=== PATIENT | male | born 1975 | race Caucasian/White ===

== ENCOUNTER 2017-09-13 23:24 | Inpatient (IN) ==
[2017-09-14] MEDS ORDERED: ONDANSETRON 4 MG/2 ML VIAL IV PRN (02:40)
[2017-09-14] MEDS ORDERED: SODIUM CHLORIDE 0.9% 1,000 ML IV SCH (03:00)
[2017-09-14 03:23] LABS: Basophils % 0.6 % (0.0-0.8); Eosinophils % 0.3 % (0.00-10.9); Hematocrit 44.1 VOL% (42.0-52.0); Hemoglobin 14.6 GM/DL (14.0-18.0); Immature Granulocytes % 1.5 %; Immature Granulocytes Absolute 0.05 #; Lymphocytes # 0.3 10*3/uL (1.4-4.0); Lymphocytes % 9.1 % (21.2-54.2); Mean Corpuscular HGB Conc 33.1 GM/DL (32-36); Mean Corpuscular Hemoglobin 29 PG (27-34); Mean Platelet Volume 12.5 FL (9.6-12.0); Monocytes # 0.4 10*3/uL (0.11-0.8); Monocytes % 10.9 % (1.7-12.7); NRBC # 0.02 10*3/uL; Neutrophils # 2.6 10*3/uL (1.4-7.4); Neutrophils % 77.6 % (38.7-73.9); Platelet Count 235 T/CUMM (130-400); Red Blood Count 5.01 MC/CUMM (3.8-5.5); Red Cell Distribution Width 14.2 % (9.3-17.3); White Blood Count 3.3 T/CUMM (4-12)
[2017-09-14 03:43] LABS: ABG Base Excess -10.3 MMOL/L (-2.5-2.5); ABG HCO3 16.4 MMOL/L (20-26); ABG Oxygen Saturation 94.9 % (95-100); ABG PH 7.248 (7.35-7.45); ABG TCO2 14.5 MMOL/L (23-27)
[2017-09-14] MEDS: CLINDAMYCIN INJ 900 MG in PREMIX 1 EACH IV SCH ×2 (03:45→11:20)
[2017-09-14 03:47] LABS: Albumin 2.3 G/DL (3.4-5.0); Bilirubin,Total 1.5 MG/DL (0.2-1.0); Calcium 7.5 MG/DL (8.5-10.1); Osmolality,Calculated 279.9 MOS/KG (273-304); Potassium 4.2 MMOL/L (3.5-5.1); Total Protein 5.8 G/DL (6.4-8.3)
[2017-09-14] MEDS ORDERED: MORPHINE 4 MG/1 ML VIAL IV ONE (04:10)
[2017-09-14 04:11] LABS: CKMB % 0.4 %
[2017-09-14 04:12] LABS: Troponin I Only 0.166 NG/ML (0.00-0.045)
[2017-09-14] MEDS ORDERED: SODIUM BICARB INJ 100 MEQ in SODIUM CHLORIDE 0.45% 1,000 ML IV SCH (04:30)
[2017-09-14 04:42] LABS: Band Neutrophils 22 % (0-10); Lymphocytes 11 % (20-55); Platelet Estimate Adequate; Segmented Neutrophils 51 % (50-85); Total Cells Counted 100
[2017-09-14 04:43] LABS: Burr Cells Slight; Giant Platelets Few; Ovalocytes Slight
[2017-09-14] MEDS ORDERED: MAGNESIUM SULF RIDER 2 GM in PREMIX 1 EACH IV PRN (05:09)
[2017-09-14] MEDS ORDERED: SODIUM CHLORIDE 0.9% 500 ML IV ONE ×2 (05:09→05:46)
[2017-09-14] MEDS ORDERED: MAGNESIUM SULF RIDER 4 GM in PREMIX 1 EACH IV PRN (05:09)
[2017-09-14] MEDS ORDERED: NOREPINEPHRINE 4 MG/4 ML VIAL IV ONE (05:52)
[2017-09-14] MEDS: PIPERACILLIN/TAZOBACTAM 3,375 MG in SODIUM CHLORIDE 0.9% 100 ML IV SCH ×2 (06:24→16:52)
[2017-09-14] MEDS: SODIUM CHLORIDE 0.9% 1,000 ML IV SCH ×3 (08:15→12:34)
[2017-09-14] MEDS: NOREPINEPHRINE 8 MG in SODIUM CHLORIDE 0.9% 242 ML IV PRN ×2 (08:26→12:21)
[2017-09-14] MEDS ORDERED: HEPARIN/NACL 0.9% 2 UNITS/ML 500 ML IV ONE (08:50)
[2017-09-14] MEDS ORDERED: MIDAZOLAM 10 MG/2 ML VIAL ONE (08:58)
[2017-09-14] MEDS ORDERED: PANTOPRAZOLE 40 MG TABLET PO SCH (09:00)
[2017-09-14] MEDS ORDERED: ENOXAPARIN 30 MG/0.3 ML SYRINGE SUBCUT SCH (09:00)
[2017-09-14] MEDS ORDERED: PHENYLEPHRINE 1 MG/10 ML SYRINGE IV ONE ×2 (09:05→12:39)
[2017-09-14] MEDS ORDERED: SUCCINYLCHOLINE 200 MG/10 ML VIAL ONE (09:05)
[2017-09-14] MEDS ORDERED: PROPOFOL 200 MG/20 ML VIAL IV ONE (09:05)
[2017-09-14 09:21] LABS: ABG HCO3 12.2 MMOL/L (20-26); ABG Oxygen Saturation 98.3 % (95-100); ABG PCO2 52.1 MM HG (35-48); ABG TCO2 13.5 MMOL/L (23-27)
[2017-09-14 09:23] LABS: ABG PH 7.058 (7.35-7.45)
[2017-09-14] MEDS ORDERED: SODIUM BICARBONATE 50 MEQ/50 ML SYRINGE IV STA (09:26)
[2017-09-14 10:08] LABS: ABG Base Excess -13.8 MMOL/L (-2.5-2.5); ABG HCO3 14.2 MMOL/L (20-26); ABG Oxygen Saturation 98.3 % (95-100); ABG PCO2 46.4 MM HG (35-48); ABG TCO2 14.2 MMOL/L (23-27)
[2017-09-14] MEDS: PHENYLEPHRINE DRIP 40 MG/250 ML PREMIX IV PRN ×2 (10:10→12:21)
[2017-09-14 10:11] LABS: ABG PH 7.142 (7.35-7.45)
[2017-09-14] MEDS ORDERED: SODIUM BICARBONATE 50 MEQ/50 ML SYRINGE IV ONE ×3 (10:22→13:07)
[2017-09-14] MEDS ORDERED: PROPOFOL 1,000 MG/100 ML BOTTLE IV ONE (10:24)
[2017-09-14] MEDS ORDERED: PHENYLEPHRINE DRIP 40 MG/250 ML PREMIX IV ONE (10:26)
[2017-09-14 11:04] LABS: Albumin 1.9 G/DL (3.4-5.0); Bilirubin,Total 1.1 MG/DL (0.2-1.0); Calcium 7.5 MG/DL (8.5-10.1); Osmolality,Calculated 282.8 MOS/KG (273-304); Potassium 4.5 MMOL/L (3.5-5.1); Total Protein 5.3 G/DL (6.4-8.3)
[2017-09-14 11:21] LABS: ABG Base Excess -10.5 MMOL/L (-2.5-2.5); ABG Oxygen Saturation 83.7 % (95-100); ABG PCO2 38.4 MM HG (35-48); ABG PH 7.242 (7.35-7.45); ABG PO2 55.1 MM HG (80-95); ABG TCO2 14.6 MMOL/L (23-27); Glucose Heart Surgery 87 MG/DL (74-106); Hematocrit Heart Surgery 45.1 PERCENT (42-52); Hemoglobin Heart Surgery 14.7 G/DL (14.0-18.0); Potassium Heart/CVR 4.6 MMOL/L (3.5-5.1)
[2017-09-14 12:05] LABS: ABG Base Excess -8.6 MMOL/L (-2.5-2.5); ABG HCO3 15.6 MMOL/L (20-26); ABG Oxygen Saturation 99.2 % (95-100); ABG PCO2 29.3 MM HG (35-48); ABG PH 7.345 (7.35-7.45); ABG PO2 221.2 MM HG (80-95); ABG TCO2 16.5 MMOL/L (23-27)
[2017-09-14 12:22] LABS: Troponin I Only 0.756 NG/ML (0.00-0.045)
[2017-09-14 12:30] LABS: Lactic Acid 10.4 MMOL/L (0.4-2.0)
[2017-09-14] MEDS ORDERED: ROCURONIUM 100 MG/10 ML VIAL IV ONE (12:37)
[2017-09-14] MEDS ORDERED: MIDAZOLAM 2 MG/2 ML VIAL ONE (12:37)
[2017-09-14] MEDS ORDERED: SEVOFLURANE 1 UNIT/15 MINUTE INH ONE (12:37)
[2017-09-14] MEDS ORDERED: ETOMIDATE 40 MG/20 ML VIAL IV ONE (12:37)
[2017-09-14] MEDS ORDERED: PHENYLEPHRINE 10 MG/1 ML VIAL IV ONE (12:39)
[2017-09-14 12:48] LABS: ABG Base Excess -17.7 MMOL/L (-2.5-2.5); ABG HCO3 11.7 MMOL/L (20-26); ABG Oxygen Saturation 98.8 % (95-100); ABG PCO2 29.1 MM HG (35-48); ABG TCO2 9.3 MMOL/L (23-27)
[2017-09-14] MEDS ORDERED: ALBUMIN 25% 25 GM in PREMIX 1 EACH IV STA (13:07)
[2017-09-14 13:11] LABS: Hematocrit 45.7 VOL% (42.0-52.0)
[2017-09-14 13:13] LABS: CKMB % 0.3 %
[2017-09-14] MEDS ORDERED: SODIUM BICARB INJ 150 MEQ in DEXTROSE 5% 850 ML IV SCH (13:30)
[2017-09-14] MEDS ORDERED: EPINEPHrine 1 MG/ML VIAL ONE (13:54)
[2017-09-14] MEDS ORDERED: DIVALPROEX 500 MG TABLET PO SCH (15:00)
[2017-09-14] MEDS ORDERED: NOREPINEPHRINE 16 MG in SODIUM CHLORIDE 0.9% 234 ML IV PRN (15:00)
[2017-09-14] MEDS ORDERED: PHENYLEPHRINE INJ 160 MG in SODIUM CHLORIDE 0.9% 234 ML IV PRN (15:00)
[2017-09-14] MEDS ORDERED: DEXTROSE 50% 25 GM/50 ML VIAL IV PRN (15:05)
[2017-09-14] MEDS ORDERED: GLUCAGON 1 MG VIAL IM PRN (15:05)
[2017-09-14] MEDS ORDERED: DEXTROSE 10% 1,000 ML IV SCH (15:30)
[2017-09-14 15:57] LABS: Hematocrit 36.4 VOL% (42.0-52.0); Hemoglobin 11.3 GM/DL (14.0-18.0)
[2017-09-14] MEDS ORDERED: SODIUM CHLORIDE 0.9% 2,000 ML IV ONE (16:44)
[2017-09-14 17:19] LABS: Basophils # 0.1 10*3/uL (0.0-0.2); Basophils % 1.3 % (0.0-0.8); Eosinophils % 0.3 % (0.00-10.9); Hematocrit 36.4 VOL% (42.0-52.0); Hemoglobin 11.6 GM/DL (14.0-18.0); Immature Granulocytes % 7.1 %; Immature Granulocytes Absolute 0.49 #; Lymphocytes # 0.8 10*3/uL (1.4-4.0); Lymphocytes % 11.5 % (21.2-54.2); Mean Corpuscular HGB Conc 31.9 GM/DL (32-36); Mean Corpuscular Hemoglobin 30 PG (27-34); Mean Corpuscular Volume 94.8 FL (87-102); Mean Platelet Volume 12.9 FL (9.6-12.0); Monocytes # 0.9 10*3/uL (0.11-0.8); Monocytes % 13.6 % (1.7-12.7); NRBC # 0.22 10*3/uL; Neutrophils # 4.6 10*3/uL (1.4-7.4); Neutrophils % 66.2 % (38.7-73.9); Platelet Count 131 T/CUMM (130-400); Red Blood Count 3.84 MC/CUMM (3.8-5.5); Red Cell Distribution Width 15.1 % (9.3-17.3); White Blood Count 6.9 T/CUMM (4-12)
[2017-09-14 17:20] LABS: ABG HCO3 7.3 MMOL/L (20-26); ABG Oxygen Saturation 98.5 % (95-100); ABG PCO2 27.4 MM HG (35-48); ABG TCO2 6.2 MMOL/L (23-27)
[2017-09-14 17:21] LABS: ABG PH 6.969 (7.35-7.45)
[2017-09-14 17:34] LABS: Apearance,Urine CLOUDY (Clear); Bacteria,Urine Occasional /HPF (Few); Bilirubin,Urine Negative (Negative); Blood, Urine Negative (Negative); Glucose,Urine (UA) Negative (Negative); Ketones,Urine Negative (Negative); Mucus,Urine Occasional /LPF (Occasional); Nitrite,Urine Negative (Negative); Protein,Urine 30 MG/DL; RBC,Urine 2 /HPF (0-4); Squamous Epithelial Cell,Urine Occasional /HPF (0-10); Urine Color Yellow (Yellow); Urine Specific Gravity 1.016 (1.001-1.035); Urine Urobilinogen < 2.0 EU/DL (0.2-1.0); WBC,Urine 3 /HPF (0-6)
[2017-09-14 17:45] LABS: INR 1.4; PT Patient Result 14.3 SECS
[2017-09-14 17:58] LABS: Lactic Acid 18.2 MMOL/L (0.4-2.0)
[2017-09-14 17:59] LABS: Partial Thromboplastin Time 78.4 SECS (0-40)
[2017-09-14] MEDS ORDERED: PENICILLIN G POTASSIUM INJ 4,000,000 UNIT in SODIUM CHLORIDE 0.9% 100 ML IV SCH (18:00)
[2017-09-14 18:47] VITALS: BP 59/35
[2017-09-14 18:55] LABS: Alanine Aminotransferase 432 U/L (16-61); Albumin 1.4 G/DL (3.4-5.0); Alkaline Phosphatase 142 U/L (45-117); Aspartate Amino Transferase 1160 U/L (0-37); Blood Urea Nitrogen 81 MG/DL (7-18); Calcium 6.3 MG/DL (8.5-10.1); Glucose 168 MG/DL (74-106); Osmolality,Calculated 293.4 MOS/KG (273-304); Sodium 133 MMOL/L (136-145); Total Protein 3.7 G/DL (6.4-8.3)
[2017-09-14 19:00] LABS: Potassium 6.3 MMOL/L (3.5-5.1)
[2017-09-14] MEDS ORDERED: VANCOMYCIN INJ 1,500 MG in SODIUM CHLORIDE 0.9% 500 ML IV ONE (19:00)
[2017-09-14 20:49] LABS: Band Neutrophils 8 % (0-10); Eosinophils 2 % (0-10); Lymphocytes 35 % (20-55); Metamyelocytes 4 %; Nucleated Red Blood Cells 3 (0-5); Segmented Neutrophils 22 % (50-85); Total Cells Counted 100
[2017-09-14 20:50] LABS: Platelet Estimate Decreased
[2017-09-14 20:51] LABS: Polychromasia Few
[2017-09-14 20:52] LABS: Smudge Cells Few
== END 2017-09-14 18:28 | disposition expired | DRG 853 ==
LOC: N.2E 23:34 → SUATTDRO 09-14 01:35
PROVIDERS: ADMIT Family Medicine; ATTEND Hospitalist